=== PATIENT | female | born 1955 | race Caucasian/White ===

== ENCOUNTER 2017-09-21 08:01 | Day surgery (SDC) | payer BC ==
[~2017-09-21] VITALS: Ht 167.6 cm; Wt 93.9 kg
[~2017-09-21 08:01] MED LIST: ACETAMINOPHEN; ALBU90OI INH; ALEN70 PO; CALCAVITDA PO; CHOL10002 PO; CHOLECALCIFEROL PO; CHOLESTYRAMINE PO; CRUTCH2 USE; FLAX PO; HYDACE10B PO; HYDACE5325 PO; IBUP400 PO; IBUP800 PO; LEVSOD75 PO; MELO7.5 PO; MONT10T PO; MULTIVITAMIN PO; NAPR500 PO; Norco 10-325 T1 EACH PO; TAMS.4ER PO; Zofran Odt4 MG SL; [UNRECOGNIZED DRUG - REMARK] PO
[2017-09-21] MEDS ORDERED: LOSA25 (08:35)
[2017-09-21] MEDS ORDERED: PRAV20 (08:35)
[2017-09-21] MEDS ORDERED: RALO60 (08:36)
[2017-09-21] MEDS ORDERED: Omeprazole20 M1 (08:36)
== END 2017-09-21 11:13 | disposition home or self-care (01) ==
LOC: ORSCSDS 08:01
PROVIDERS: Internal Medicine Gastroenterology
PROC: 0DBL8ZX Excision of Transverse Colon, Via Natural or Artificial Opening Endoscopic, Diagnostic (ICD-10-PCS; principal; 2017-09-21 09:15)
PROC: 0DBN8ZX Excision of Sigmoid Colon, Via Natural or Artificial Opening Endoscopic, Diagnostic (ICD-10-PCS; principal; 2017-09-21 09:15)
PROC: 0D757ZZ Dilation of Esophagus, Via Natural or Artificial Opening (ICD-10-PCS; principal; 2017-09-21 09:15)
PROC: 0DB68ZX Excision of Stomach, Via Natural or Artificial Opening Endoscopic, Diagnostic (ICD-10-PCS; principal; 2017-09-21 09:15)
PROC: 0DBK8ZX Excision of Ascending Colon, Via Natural or Artificial Opening Endoscopic, Diagnostic (ICD-10-PCS; principal; 2017-09-21 09:15)
DX: R13.10 Dysphagia, unspecified (principal); K21.9 Gastro-esophageal reflux disease without esophagitis; K29.70 Gastritis, unspecified, without bleeding; K29.80 Duodenitis without bleeding; Z86.010 Personal history of colon polyps; D12.3 Benign neoplasm of transverse colon; D12.2 Benign neoplasm of ascending colon; K63.5 Polyp of colon; K64.8 Other hemorrhoids; E03.9 Hypothyroidism, unspecified; E78.00 Pure hypercholesterolemia, unspecified; E66.9 Obesity, unspecified; Z68.32 Body mass index [BMI] 32.0-32.9, adult; J45.909 Unspecified asthma, uncomplicated; Z79.899 Other long term (current) drug therapy
CPT/HCPCS: 88305; 88342; J7120

== ENCOUNTER → 2017-10-12 | Outpatient (CLI) | payer BC ==
[~2017-10-12] MED LIST changes: +LOSA25; +Omeprazole20 M1; +PRAV20; +RALO60
== END ==
LOC: PLD 10:17 → LAB SHORT 10:17
DX: D22.5 Melanocytic nevi of trunk (principal)
CPT/HCPCS: 88305

== ENCOUNTER 2020-08-05 11:44 | Emergency (ER) | payer MEDICARE, BC ==
[~2020-08-05] VITALS: Ht 170.2 cm; Wt 96.6 kg
[~2020-08-05 11:44] MED LIST changes: +ACET500; +AMLO5; +Calcium + Vita1 EACH PO; +MONT4; +PROAIR RESPICL90 MCG; +Roxicodone5 MG PO; +VITAMIN D34000 UNIT PO
== END 2020-08-05 13:22 | disposition home or self-care (01) ==
LOC: ER 11:44
DX: G44.309 Post-traumatic headache, unspecified, not intractable (principal); F07.81 Postconcussional syndrome; Z91.011 Allergy to milk products; Z88.5 Allergy status to narcotic agent; Z91.018 Allergy to other foods; Z79.899 Other long term (current) drug therapy; E03.9 Hypothyroidism, unspecified
CPT/HCPCS: 70450; 99284-25

== ENCOUNTER → 2021-11-24 | Outpatient (CLI) | payer MEDICARE, BC ==
[2021-11-24 19:19] LABS: Adenovirus F 40/41 Not Detected (NOT DETECT); Astrovirus Not Detected (NOT DETECT); Campylobacter Sp Not Detected (NOT DETECT); Cryptosporidium Not Detected (NOT DETECT); Cyclospora Cayetanensis Not Detected (NOT DETECT); E. Coli O157 Not Detected (NOT DETECT); Entamoeba Histolytica Not Detected (NOT DETECT); Enteroaggregative E. coli-EAEC Not Detected (NOT DETECT); Enteropathogenic E. coli-EPEC Not Detected (NOT DETECT); Enterotoxigenic E. coli-ETEC Not Detected (NOT DETECT); Giardia Lamblia Not Detected (NOT DETECT); Norovirus GI/GII Not Detected (NOT DETECT); Plesiomonas Shigelloides Not Detected (NOT DETECT); Rotavirus A Not Detected (NOT DETECT); Salmonella Sp Not Detected (NOT DETECT); Sapovirus Not Detected (NOT DETECT); Shiga Toxin-prod E. coli-STEC Not Detected (NOT DETECT); Shigella/Enteroin E. coli-EIEC Not Detected (NOT DETECT); Vibrio Cholerae Not Detected (NOT DETECT); Vibrio Sp Not Detected (NOT DETECT); Yersinia Enterocolitica Not Detected (NOT DETECT)
== END | disposition home or self-care (01) ==
LOC: LAB 12:00 → LAB SHORT 12:00
PROVIDERS: Physician Assistant Medical
DX: R19.7 Diarrhea, unspecified (principal)
CPT/HCPCS: 87507

== ENCOUNTER 2023-11-21 11:44 | Emergency (ER) | payer MEDICARE, BC ==
[~2023-11-21] VITALS: Ht 172.7 cm; Wt 90.3 kg
[2023-11-21 13:17] LABS: BASOPHILS ABSOLUTE AUTO 0.06 K/mm3 (0.00-0.23); BASOPHILS PERCENT AUTO 1 % (0-2); EOSINOPHILS ABSOLUTE AUTO 0.11 K/mm3 (0.00-0.68); EOSINOPHILS PERCENT AUTO 2 % (0-6); Hematocrit 44.3 % (33.0-51.0); Hemoglobin 15.3 g/dL (11.5-16.0); IMMATURE GRAN ABSOLUTE AUTO 0.02 K/mm3 (0.00-0.10); IMMATURE GRAN PERCENT AUTO 0 % (0-1); LYMPHOCYTES ABSOLUTE AUTO 2.11 K/mm3 (0.84-5.20); LYMPHOCYTES PERCENT AUTO 29 % (21-46); MONOCYTES ABSOLUTE AUTO 0.64 K/mm3 (0.16-1.47); MONOCYTES PERCENT AUTO 9 % (4-13); Mean Corpuscular HGB 30.1 pg (26.0-34.0); Mean Corpuscular HGB Conc 34.5 g/dL (31.5-36.5); Mean Corpuscular Volume 87 fL (80-100); Mean Platelet Volume 9.3 fL (9.1-12.4); NEUTROPHILS ABSOLUTE AUTO 4.37 K/mm3 (1.96-9.15); NEUTROPHILS PERCENT AUTO 60 % (41-73); Platelet Count 325 K/mm3 (150-400); RDW Coefficient Variation 14.3 % (11.7-14.2); RDW Standard Deviation 45.3 fL (35.1-46.3); Red Blood Cell Count 5.09 M/mm3 (3.80-5.20); White Blood Cell Count 7.31 K/mm3 (4.00-11.30)
[2023-11-21] MEDS ORDERED: LOSA50 PO (13:34)
[2023-11-21] MEDS ORDERED: Adipex-P37.5 M1 PO (13:35)
[2023-11-21] MEDS ORDERED: LEQVIO284 MG/1.5 PO (13:36)
[2023-11-21] MEDS ORDERED: COLE625 PO (13:37)
[2023-11-21 13:42] LABS: Albumin, Blood 3.7 g/dL (3.4-5.0); Albumin/Globulin Ratio 1.1 (0.8-1.8); Bilirubin, Total 0.6 mg/dL (0.1-1.0); Calcium, Blood 9.4 mg/dL (8.5-10.1); Creatinine, Blood 0.67 mg/dL (0.40-1.00); Globulin, Blood 3.5 g/dL (2.2-4.0); Total Protein, Blood 7.2 g/dL (6.4-8.2)
[2023-11-21 15:05] VITALS: BP 155/92
== END 2023-11-21 15:06 | disposition home or self-care (01) ==
LOC: ER 11:44
PROVIDERS: Family Medicine
DX: R41.82 Altered mental status, unspecified (principal); Z79.899 Other long term (current) drug therapy; Z91.011 Allergy to milk products; Z88.5 Allergy status to narcotic agent; Z91.018 Allergy to other foods; Z88.8 Allergy status to other drugs, medicaments and biological substances
CPT/HCPCS: 80053; 85025; 99284

== ENCOUNTER 2024-04-06 10:24 | Inpatient (IN) | payer MEDICARE, BC ==
[~2024-04-06] VITALS: Ht 172.7 cm; Wt 92.2 kg
[~2024-04-06 10:24] MED LIST changes: -ACET500; +ACET500 PO; -AMLO5; +Adipex-P37.5 M1 PO; +COLE625 PO; -Calcium + Vita1 EACH PO; +LOSA50 PO; -MELO7.5 PO; -MONT4; -Omeprazole20 M1; -PROAIR RESPICL90 MCG; -VITAMIN D34000 UNIT PO
[2024-04-06] MEDS ORDERED: NS 1,000 ML IV SCH ×4 (10:50→16:00)
[2024-04-06 11:12] LABS: BASOPHILS ABSOLUTE AUTO 0.08 K/mm3 (0.00-0.23); BASOPHILS PERCENT AUTO 1 % (0-2); EOSINOPHILS PERCENT AUTO 0 % (0-6); Hematocrit 39.5 % (33.0-51.0); IMMATURE GRAN PERCENT AUTO 1 % (0-1); LYMPHOCYTES ABSOLUTE AUTO 1.62 K/mm3 (0.84-5.20); LYMPHOCYTES PERCENT AUTO 13 % (21-46); MONOCYTES ABSOLUTE AUTO 1.39 K/mm3 (0.16-1.47); MONOCYTES PERCENT AUTO 11 % (4-13); Mean Corpuscular HGB 29.7 pg (26.0-34.0); Mean Corpuscular HGB Conc 35.4 g/dL (31.5-36.5); Mean Corpuscular Volume 84 fL (80-100); Mean Platelet Volume 10.6 fL (9.1-12.4); NEUTROPHILS ABSOLUTE AUTO 9.62 K/mm3 (1.96-9.15); NEUTROPHILS PERCENT AUTO 75 % (41-73); Platelet Count 330 K/mm3 (150-400); RDW Coefficient Variation 14.4 % (11.7-14.2); RDW Standard Deviation 44.2 fL (35.1-46.3); Red Blood Cell Count 4.72 M/mm3 (3.80-5.20); White Blood Cell Count 12.81 K/mm3 (4.00-11.30)
[2024-04-06] MEDS ORDERED: Ketorolac Tromethamine 30mg Vial IV ONE (11:25)
[2024-04-06] MEDS ORDERED: Ondansetron HCl 2 MG / ML 2ML Vial IV ONE (11:25)
[2024-04-06 11:32] LABS: Albumin, Blood 2.6 g/dL (3.4-5.0); Albumin/Globulin Ratio 0.6 (0.8-1.8); Bilirubin, Total 0.7 mg/dL (0.1-1.0); Bun/Creatinine Ratio 16.5 (12.0-20.0); Calcium, Blood 9.2 mg/dL (8.5-10.1); Creatinine, Blood 1.15 mg/dL (0.40-1.00); Globulin, Blood 4.4 g/dL (2.2-4.0); Magnesium, Blood 2.3 mg/dL (1.6-2.4); Potassium, Blood 3.1 mmol/L (3.5-5.5)
[2024-04-06 11:43] LABS: Influenza A, PCR NEGATIVE (NEGATIVE); Influenza B, PCR NEGATIVE (NEGATIVE); Resp Syncytial Virus, PCR NEGATIVE (NEGATIVE); SARS-Cov-2 (COVID-19) PCR, MMC NEGATIVE (NEGATIVE)
[2024-04-06] MEDS ORDERED: Potassium Chl 20MEQ/Water100ML 100 ML IV ONE (12:05)
[2024-04-06 12:50] LABS: Free Thyroxine 1.49 ng/dL (0.70-1.60); Thyroid Stimulating Hormone 1.52 uIU/mL (0.360-4.800)
[2024-04-06] MEDS ORDERED: CefTRIAXone Sodium 1,000 MG in NS 50 ML IV ONE (12:55)
[2024-04-06] MEDS ORDERED: Azithromycin 500 MG in NS 250 ML IV ONE (12:55)
[2024-04-06] MEDS ORDERED: MetroNIDAZOLE 500MG/NS 100 ml 100 ML IV ONE (13:15)
[2024-04-06] MEDS ORDERED: FLU VACC TS2024-25(6MOS UP)/PF 45 MCG/0.5 ML SYRINGE IM SCH (15:15)
[2024-04-06] MEDS ORDERED: Ondansetron 4 MG TAB PO PRN (15:15)
[2024-04-06] MEDS ORDERED: PNEUMOC 20-VAL CONJ-DIP CRM/PF 0.5 ML SYRINGE IM SCH (15:15)
[2024-04-06] MEDS ORDERED: Albuterol 2.5 MG/3 ML VIAL INH PRN (15:20)
[2024-04-06] MEDS ORDERED: Lactated Ringer's 1,000 ML IV SCH (16:00)
[2024-04-06] MEDS ORDERED: Clindamycin 900mg in D5W 50ML 50 ML IV SCH (16:00)
[2024-04-06 17:51] VITALS: BP 135/64
[2024-04-06] MEDS ORDERED: Ampicillin Sod/Sulbactam Sod 3 GM in NS 100 ML IV SCH (18:00)
[2024-04-06 19:57] VITALS: BP 110/49
[2024-04-06] MEDS ORDERED: AMLO5 PO (19:58)
[2024-04-06 20:00] VITALS: BP 128/60
--- NOTE | 2024-04-06 20:10 | NUR ---
DAY SHIFT SUMMARY: PATIENT ARRIVED TO FLOOR AT 1745. A&Ox4. PLEASANT AND COOPERATIVE WITH CARE. FULLY CLOTHED; DID NOT WANT TO WEAR GOWN. PROVIDED WITH DINNER TRAY AND WATER. MEDS WHOLE WITH FLUIDS. SBA c FWW TO BATHROOM. CONTINENT OF BOWEL AND BLADDER. NO C/O PAIN OR DISCOMFORT AT THIS TIME. FLUIDS AND MAG RUNNING @ TIME OF ADMIT. ABx PIGGY-BACKED AFTER MAG COMPLETED. BED IN LOWEST POSITION. CALL LIGHT WITHIN REACH. ALL NEEDS MET. REPORT TO ONCOMING NURSE.
[2024-04-06] MEDS ORDERED: Clindamycin HCl 150 MG Cap PO SCH (21:00)
[2024-04-06] MEDS ORDERED: Benzonatate 100 MG Cap PO PRN ×2 (21:15)
[2024-04-07 05:31] VITALS: BP 110/64
--- NOTE | 2024-04-07 05:49 | NUR ---
SHIFT SUMMARY PATIENT IS ALERT AND ORIENTED. PATIENT IS COOPERATIVE AND PLEASENT WITH CARE. PATIENT HAS HAD NO ACUTE EVENTS THIS SHIFT. VITAL SIGNS REVIEWED. IV FLUIDS INFUSED ORDERED. PATIENT HAS COMPLAINED OF PAIN, NAUSEA, SOB OR VOMITTING THIS SHIFT. BED IN LOCKED AND LOWEST POSITION. CALL LIGHT IN PLACE. WILL MONITOR UNTIL SHIFT CHANGE.
[2024-04-07] MEDS ORDERED: Pantoprazole Sodium 20 MG Tab PO SCH ×2 (06:00→16:30)
[2024-04-07] MEDS ORDERED: Levothyroxine Sodium 0.075 MG Tab PO SCH (06:00)
[2024-04-07 06:36] LABS: BASOPHILS ABSOLUTE AUTO 0.06 K/mm3 (0.00-0.23); BASOPHILS PERCENT AUTO 0 % (0-2); EOSINOPHILS PERCENT AUTO 0 % (0-6); Hematocrit 34.1 % (33.0-51.0); Hemoglobin 12.3 g/dL (11.5-16.0); IMMATURE GRAN ABSOLUTE AUTO 0.12 K/mm3 (0.00-0.10); IMMATURE GRAN PERCENT AUTO 1 % (0-1); LYMPHOCYTES ABSOLUTE AUTO 1.75 K/mm3 (0.84-5.20); LYMPHOCYTES PERCENT AUTO 13 % (21-46); MONOCYTES PERCENT AUTO 9 % (4-13); Mean Corpuscular HGB 30.3 pg (26.0-34.0); Mean Corpuscular HGB Conc 36.1 g/dL (31.5-36.5); Mean Corpuscular Volume 84 fL (80-100); Mean Platelet Volume 11.1 fL (9.1-12.4); NEUTROPHILS ABSOLUTE AUTO 10.66 K/mm3 (1.96-9.15); NEUTROPHILS PERCENT AUTO 77 % (41-73); Platelet Count 317 K/mm3 (150-400); RDW Coefficient Variation 14.9 % (11.7-14.2); RDW Standard Deviation 45.7 fL (35.1-46.3); Red Blood Cell Count 4.06 M/mm3 (3.80-5.20); White Blood Cell Count 13.89 K/mm3 (4.00-11.30)
[2024-04-07 07:14] VITALS: BP 158/61
[2024-04-07] MEDS ORDERED: CefTRIAXone Sodium 1,000 MG in NS 100 ML IV SCH (09:00)
[2024-04-07] MEDS ORDERED: Enoxaparin 40 MG/0.4 ML SYR SC SCH (09:00)
[2024-04-07 11:21] LABS: Bun/Creatinine Ratio 12.9 (12.0-20.0); Creatinine, Blood 0.85 mg/dL (0.40-1.00); Potassium, Blood 3.1 mmol/L (3.5-5.5)
[2024-04-07] MEDS ORDERED: Potassium Chloride 20 MEQ TabCR PO ONE (12:00)
[2024-04-07] MEDS ORDERED: Azithromycin 250 MG Tab PO SCH (15:00)
[2024-04-07 15:25] VITALS: BP 139/68
--- NOTE | 2024-04-07 17:44 | NUR ---
REPORT RECEIVED VERIFIED A/O X4 SOB WITH EXHERTION AND ALSO WHEN EATING. PT STATES SHE FEELS BETTER THEN SHE HAS BEEN. PT HAS BEEN COOPERATIVE WITH CARE AND IS ABLE TO MAKE NEEDS KNOWN. ASSISTED PT WITH SHOWER AND SHE DID VERY WELL. RESPIRATORY CARE INTO SEE PT, PT WAS LAY FLAT AND WHEN O2 WAS CHECKED IT WAS IN THE HIGH 80S. HEAD OF BED WAS ELEVATED AND PT PLACED ON CONT PULSE OX. PT STATES SHE FEELS WELL AND WOULD CALL IF NEEDING ASSISTENCE.
[2024-04-07 21:13] LABS: Adenovirus Not Detected (NOT DETECT); Bordetella pertussis Not Detected (NOT DETECT); Chlamydophila pneumoniae Not Detected (NOT DETECT); Coronavirus 229E Not Detected (NOT DETECT); Coronavirus HKU1 Not Detected (NOT DETECT); Coronavirus NL63 Not Detected (NOT DETECT); Coronavirus OC43 Not Detected (NOT DETECT); Human Metapneumovirus Not Detected (NOT DETECT); Human Rhinovirus/Enterovirus Not Detected (NOT DETECT); Influenza A/2009-H1 Not Detected (NOT DETECT); Influenza A/H1 Not Detected (NOT DETECT); Influenza A/H3 Not Detected (NOT DETECT); Influenza B Not Detected (NOT DETECT); Mycoplasma pneumoniae Not Detected (NOT DETECT); Parainfluenza Virus 1 Not Detected (NOT DETECT); Parainfluenza Virus 2 Not Detected (NOT DETECT); Parainfluenza Virus 3 Not Detected (NOT DETECT); Parainfluenza Virus 4 Not Detected (NOT DETECT); Respiratory Syncytial Virus Not Detected (NOT DETECT); SARS-Cov-2 (COVID-19), BioFire Not Detected (NOT DETECT)
[2024-04-07 21:37] VITALS: BP 135/69
[2024-04-08 03:49] VITALS: BP 136/70
--- NOTE | 2024-04-08 06:22 | NUR ---
CRACKER AND COOKIE MACHINE OPERATOR SUMMARY DR FRAZIER NOTIFIED OF BLOOD CULTURE POSITIVE X 1, GRAM VARIABLE RODS. SAYS CURRENT ABX COVERAGE IS ADEQUATE AND HE WILL DOUBLE CHECK HER CHART AND MAKE SURE. NO OTHER ACUTE EVENTS OVERNIGHT.
[2024-04-08 06:38] LABS: BASOPHILS ABSOLUTE AUTO 0.06 K/mm3 (0.00-0.23); BASOPHILS PERCENT AUTO 1 % (0-2); EOSINOPHILS ABSOLUTE AUTO 0.02 K/mm3 (0.00-0.68); EOSINOPHILS PERCENT AUTO 0 % (0-6); Hematocrit 32.1 % (33.0-51.0); Hemoglobin 11.2 g/dL (11.5-16.0); IMMATURE GRAN ABSOLUTE AUTO 0.11 K/mm3 (0.00-0.10); IMMATURE GRAN PERCENT AUTO 1 % (0-1); LYMPHOCYTES ABSOLUTE AUTO 1.74 K/mm3 (0.84-5.20); LYMPHOCYTES PERCENT AUTO 15 % (21-46); MONOCYTES ABSOLUTE AUTO 1.29 K/mm3 (0.16-1.47); MONOCYTES PERCENT AUTO 11 % (4-13); Mean Corpuscular HGB 29.7 pg (26.0-34.0); Mean Corpuscular HGB Conc 34.9 g/dL (31.5-36.5); Mean Corpuscular Volume 85 fL (80-100); NEUTROPHILS PERCENT AUTO 72 % (41-73); Platelet Count 352 K/mm3 (150-400); RDW Coefficient Variation 15.2 % (11.7-14.2); RDW Standard Deviation 47.8 fL (35.1-46.3); Red Blood Cell Count 3.77 M/mm3 (3.80-5.20); White Blood Cell Count 11.62 K/mm3 (4.00-11.30)
[2024-04-08 06:56] LABS: Bun/Creatinine Ratio 8.6 (12.0-20.0); Calcium, Blood 7.7 mg/dL (8.5-10.1); Creatinine, Blood 0.7 mg/dL (0.40-1.00); Potassium, Blood 2.9 mmol/L (3.5-5.5)
[2024-04-08 07:15] VITALS: BP 113/57
[2024-04-08] MEDS ORDERED: Potassium Chloride 10 Meq Tablet SA PO ONE (09:30)
[2024-04-08] MEDS ORDERED: Potassium Chl 20MEQ/Water100ML 100 ML IV SCH (09:35)
[2024-04-08] MEDS ORDERED: Lactobacil 2-S.Thermo-Bifido 1 1 Cap PO SCH (10:00)
[2024-04-08 15:23] VITALS: BP 138/64
[2024-04-08 19:35] VITALS: BP 124/59
[2024-04-09 02:03] VITALS: BP 134/75
[2024-04-09] MEDS ORDERED: Acetaminophen 325 MG TABLET PO PRN (04:50)
[2024-04-09 05:20] LABS: BASOPHILS ABSOLUTE AUTO 0.07 K/mm3 (0.00-0.23); BASOPHILS PERCENT AUTO 1 % (0-2); EOSINOPHILS ABSOLUTE AUTO 0.09 K/mm3 (0.00-0.68); EOSINOPHILS PERCENT AUTO 1 % (0-6); Hematocrit 33.3 % (33.0-51.0); Hemoglobin 11.7 g/dL (11.5-16.0); IMMATURE GRAN PERCENT AUTO 1 % (0-1); LYMPHOCYTES ABSOLUTE AUTO 1.87 K/mm3 (0.84-5.20); LYMPHOCYTES PERCENT AUTO 17 % (21-46); MONOCYTES ABSOLUTE AUTO 1.02 K/mm3 (0.16-1.47); MONOCYTES PERCENT AUTO 9 % (4-13); Mean Corpuscular HGB 29.8 pg (26.0-34.0); Mean Corpuscular HGB Conc 35.1 g/dL (31.5-36.5); Mean Corpuscular Volume 85 fL (80-100); Mean Platelet Volume 9.8 fL (9.1-12.4); NEUTROPHILS ABSOLUTE AUTO 7.66 K/mm3 (1.96-9.15); NEUTROPHILS PERCENT AUTO 71 % (41-73); Platelet Count 375 K/mm3 (150-400); RDW Coefficient Variation 15.1 % (11.7-14.2); RDW Standard Deviation 46.9 fL (35.1-46.3); Red Blood Cell Count 3.93 M/mm3 (3.80-5.20); White Blood Cell Count 10.81 K/mm3 (4.00-11.30)
[2024-04-09 05:47] LABS: Bun/Creatinine Ratio 6.8 (12.0-20.0); Calcium, Blood 8.1 mg/dL (8.5-10.1); Creatinine, Blood 0.59 mg/dL (0.40-1.00)
[2024-04-09 07:17] VITALS: BP 143/78
[2024-04-09] MEDS ORDERED: Potassium Chloride 10 Meq Tablet SA PO ONE (08:35)
[2024-04-09] MEDS ORDERED: Potassium Chl 20MEQ/Water100ML 100 ML IV SCH (08:40)
[2024-04-09] MEDS ORDERED: OMEP20ER PO (14:29)
[2024-04-09] MEDS ORDERED: MONT10T PO (14:29)
[2024-04-09 16:12] VITALS: BP 122/66
--- NOTE | 2024-04-09 18:28 | NUR ---
REPORT RECEIEVED VERIFIED. LAYING QUIETLY IN BED, SLIGHT HEADACHE THAT WAS COVERED WITH TYLENOL, PT HAS BEEN APPROPRIATE WITH CARE. POTASSIUM WAS LOW SO MULTIPLE K-RIDERS ORDERED IV AND PO WHICH PT ZEHRA WELL. PT HAS BEEN AMBULATORY AND INDEPENDANT IN ROOM SHOWING NO DISTRESS. CPAP SET UP BY RT FOR TONIGHTS USE.
[2024-04-09 19:16] VITALS: BP 138/77
[2024-04-10 05:20] VITALS: BP 143/85
[2024-04-10 06:01] LABS: Hematocrit 33.2 % (33.0-51.0); Hemoglobin 11.5 g/dL (11.5-16.0); Mean Corpuscular HGB 29.5 pg (26.0-34.0); Mean Corpuscular HGB Conc 34.6 g/dL (31.5-36.5); Mean Corpuscular Volume 85 fL (80-100); Mean Platelet Volume 9.6 fL (9.1-12.4); Platelet Count 448 K/mm3 (150-400); RDW Coefficient Variation 15.2 % (11.7-14.2); RDW Standard Deviation 47.3 fL (35.1-46.3); White Blood Cell Count 9.37 K/mm3 (4.00-11.30)
[2024-04-10 06:22] LABS: Albumin/Globulin Ratio 0.5 (0.8-1.8); Bilirubin, Total 0.6 mg/dL (0.1-1.0); Bun/Creatinine Ratio 6.3 (12.0-20.0); Calcium, Blood 8.1 mg/dL (8.5-10.1); Creatinine, Blood 0.63 mg/dL (0.40-1.00); Globulin, Blood 3.9 g/dL (2.2-4.0); Magnesium, Blood 1.4 mg/dL (1.6-2.4); Phosphorus, Blood 3.1 mg/dL (2.5-4.9); Potassium, Blood 2.9 mmol/L (3.5-5.5); Total Protein, Blood 5.9 g/dL (6.4-8.2)
[2024-04-10 07:29] VITALS: BP 146/82
--- NOTE | 2024-04-10 07:29 | NUR ---
MARKETING COMMUNICATION MANAGER SUMMARY PT STILL REQUIRING 2-3L O2 WHILE AWAKE. WHEN ASLEEP, REQUIRING A 6L BLEED WITH HER CPAP. NO ACUTE ISSUES OVERNIGHT.
[2024-04-10] MEDS ORDERED: Magnesium Sulf 2 GM/Water 50ML 50 ML IV STA (08:43)
[2024-04-10] MEDS ORDERED: Potassium Chl 20MEQ/Water100ML 100 ML IV SCH (08:45)
[2024-04-10] MEDS ORDERED: Potassium Chloride 10 Meq Tablet SA PO ONE (09:00)
[2024-04-10] MEDS ORDERED: Calcium Carbonate 500 MG Tab Chew PO PRN (09:05)
[2024-04-10] MEDS ORDERED: NS 250 ML IV PRN (10:05)
[2024-04-10 15:35] VITALS: BP 157/86
--- NOTE | 2024-04-10 17:10 | NUR ---
PT ALERT AND ORIENTED X4, INDEPENDENT AT BASELINE. INDEPENDENT WITH FWW IN THE ROOM DUE TO WEAKNESS. PT HAS NONE PRODUCTIVE COUGH. SAT 92% ON 4L NC, USE OF CPAP AT NIGHT WITH 6L BLEED IN. PT R/A WITH WITH CPAP OVERNIGHT NO BLEED IN AT BASELINE. PT DENIES CHEST PAIN OR PRESSURE, DESCRIBED "JUST NOT FEELING WELL". REPLACED K+ AND MAG. PT DEVELOPED NAUSEA. TREATED PER EMAR.
[2024-04-10 19:40] VITALS: BP 135/74
[2024-04-11 03:59] VITALS: BP 125/78
[2024-04-11 06:24] LABS: Bun/Creatinine Ratio 9.1 (12.0-20.0); Calcium, Blood 8.6 mg/dL (8.5-10.1); Creatinine, Blood 0.66 mg/dL (0.40-1.00); Magnesium, Blood 1.8 mg/dL (1.6-2.4); Potassium, Blood 3.6 mmol/L (3.5-5.5)
--- NOTE | 2024-04-11 07:32 | NUR ---
PAINT MIXER MACHINE SUMMARY PT SAYS SHE IS FEELING BETTER THIS MORNING. WILL TRY AGAIN TO WEAN HER OFF OXYGEN THIS MORNING. PREVIOUS ATTEMPTS AT WEANING 02 HAVENT BEEN EFFECTIVE.
[2024-04-11 08:01] VITALS: BP 128/61
--- NOTE | 2024-04-11 09:59 | NUR ---
WHILE PATIENT ASLEEP OXYGEN SATURATION DECREASE TO 87% EVEN WHILE ON OXYGEN AT 2L N/C. CPAP PLACED ON PATIENT WITH A 5L BLEED IN OF OXYGEN PATIENT OXGEN SATURATION BACK UP TO 97%. PATIENT ENCOURAGED TO SLEEP IN A 45 DEGREE ANGLE AND ENCOURAGED TO SIT UP FOR MEALS TO INCREASE EXPANSION.
[2024-04-11 15:49] VITALS: BP 136/80
--- NOTE | 2024-04-11 18:25 | NUR ---
PATIENT A/O X4. PATIENT HAD HOME 02 EVAL WITH NO HOME OXYGEN INDICATED. DR OLIVEIRA HAS ORDERED AN OVERNIGHT PULSE OXIMETRY STUDY FOR THIS EVENING. PATIENT HAS BEEN WALKING IN HALLS WITH NO ASSISTANCE USING A FWW. IV ON LEFT HAND WAS DC DUE TO PAIN IN AREA HOWEVER PATIENT HAS IV ON RIGHT. PATIENT RESTING COMFORTABLY IN THE BED. PATIENT WAS GIVEN EDUCATION ON USING INCENTIVE SPIROMETRY HOURLY WHILE AWAKE.
[2024-04-11 19:09] VITALS: BP 153/85
[2024-04-12 05:24] VITALS: BP 153/88
--- NOTE | 2024-04-12 06:02 | NUR ---
SHIFT SUMMARY: Pt is admitted for sepsis and is a full code. Is alert and able to make needs known. ADLs have been SBA due to sleep study. Was given PRN APAP for pain management.
[2024-04-12 06:28] LABS: BASOPHILS ABSOLUTE AUTO 0.09 K/mm3 (0.00-0.23); BASOPHILS PERCENT AUTO 1 % (0-2); EOSINOPHILS ABSOLUTE AUTO 0.13 K/mm3 (0.00-0.68); EOSINOPHILS PERCENT AUTO 2 % (0-6); Hematocrit 36.1 % (33.0-51.0); Hemoglobin 12.4 g/dL (11.5-16.0); IMMATURE GRAN ABSOLUTE AUTO 0.04 K/mm3 (0.00-0.10); IMMATURE GRAN PERCENT AUTO 1 % (0-1); LYMPHOCYTES PERCENT AUTO 25 % (21-46); MONOCYTES ABSOLUTE AUTO 0.81 K/mm3 (0.16-1.47); MONOCYTES PERCENT AUTO 10 % (4-13); Mean Corpuscular HGB 30.2 pg (26.0-34.0); Mean Corpuscular HGB Conc 34.3 g/dL (31.5-36.5); Mean Corpuscular Volume 88 fL (80-100); NEUTROPHILS ABSOLUTE AUTO 5.32 K/mm3 (1.96-9.15); NEUTROPHILS PERCENT AUTO 63 % (41-73); Platelet Count 538 K/mm3 (150-400); RDW Coefficient Variation 15.4 % (11.7-14.2); RDW Standard Deviation 49.6 fL (35.1-46.3); Red Blood Cell Count 4.11 M/mm3 (3.80-5.20); White Blood Cell Count 8.49 K/mm3 (4.00-11.30)
[2024-04-12 06:45] LABS: Albumin, Blood 2.4 g/dL (3.4-5.0); Anion Gap 10 mmol/L (3-11); Blood Urea Nitrogen 9 mg/dL (8-24); Bun/Creatinine Ratio 12.6 (12.0-20.0); CO2, Blood 27 mmol/L (21-32); Calcium, Blood 8.8 mg/dL (8.5-10.1); Chloride, Blood 106 mmol/L (98-108); Creatinine, Blood 0.71 mg/dL (0.40-1.00); Glomerular Filtration Rate 91 (60-); Glucose, Blood 109 mg/dL (70-99); Magnesium, Blood 1.9 mg/dL (1.6-2.4); Phosphorus, Blood 3.1 mg/dL (2.5-4.9); Potassium, Blood 3.6 mmol/L (3.5-5.5); Sodium, Blood 139 mmol/L (136-145)
[2024-04-12 07:10] VITALS: BP 155/85
[2024-04-12] MEDS ORDERED: VITAMIN D325 MC3 PO (11:38)
[2024-04-12] MEDS ORDERED: PROAIR RESPICL90 MCG INH (11:38)
[2024-04-12] MEDS ORDERED: MOBIC15 MG PO (11:38)
[2024-04-12] MEDS ORDERED: CALCIUM 600 MG1 EA17 PO (11:39)
[2024-04-12] MEDS ORDERED: LEQVIO284 MG/1.5 SC (11:40)
[2024-04-12] MEDS ORDERED: PROLIA60 MG/1 ML SC (11:41)
[2024-04-12] MEDS ORDERED: B-121000 MC3 PO (11:42)
[2024-04-12] MEDS ORDERED: OSTEO BIFLEX TRIPLE PO (11:42)
[2024-04-12] MEDS ORDERED: LOSA50 PO (12:15)
[2024-04-12] MEDS ORDERED: AMOCLA875 PO (12:16)
[2024-04-12] MEDS ORDERED: VISBIOME 112.51 EACH PO (12:17)
--- NOTE | 2024-04-12 13:13 | NUR ---
REVIEWED DISHCARGE INSTURTION WITH PATIENT. PATIENT TO DISCHARGE HOME WITH SPOUSE DRIVING AND HAS FOLLOW UP APPT WITH PRIMARY CARE PROVIDER ON 04/13/2024 FOR FOLLOW UP. NO FUTHER QUESTION FROM PATIENT WHO VERBALIZED UNDERSTANDING WITH DISCHARGE INSTRUCTIONS.
[2024-04-13 06:15] LABS: ALDOSTERONE <3.0 ng/dL; ALDOSTERONE/RENINACTIVITY CALC <7.5 ratio (<=25.0); RENIN ACTIVITY 0.4 ng/mL/hr
== END 2024-04-12 13:49 | disposition home or self-care (01) | DRG 871 ==
LOC: ER 10:24 → MEDS 10:25 → ENPENDDIS 04-12 10:37 → MEDS 04-12 13:49
PROVIDERS: Family Medicine; Physician Assistant; Student in an Organized Health Care Education/Training Program; ADMIT Internal Medicine
PROC: 3E03329 Introduction of Other Anti-infective into Peripheral Vein, Percutaneous Approach (ICD-10-PCS; principal; 2024-04-07)
PROC: 5A09357 Assistance with Respiratory Ventilation, Less than 24 Consecutive Hours, Continuous Positive Airway Pressure (ICD-10-PCS; 2024-04-07)
DX: A41.9 Sepsis, unspecified organism (principal); J18.9 Pneumonia, unspecified organism; J85.0 Gangrene and necrosis of lung; N17.9 Acute kidney failure, unspecified; E87.1 Hypo-osmolality and hyponatremia; R65.20 Severe sepsis without septic shock; K21.9 Gastro-esophageal reflux disease without esophagitis; E78.5 Hyperlipidemia, unspecified; E87.6 Hypokalemia; E03.9 Hypothyroidism, unspecified; G47.33 Obstructive sleep apnea (adult) (pediatric); I10 Essential (primary) hypertension; Z88.8 Allergy status to other drugs, medicaments and biological substances; Z91.011 Allergy to milk products; Z88.5 Allergy status to narcotic agent; Z91.018 Allergy to other foods; Z87.442 Personal history of urinary calculi; M19.90 Unspecified osteoarthritis, unspecified site; Z90.89 Acquired absence of other organs; Z98.51 Tubal ligation status; Z90.710 Acquired absence of both cervix and uterus; Z98.890 Other specified postprocedural states
CPT/HCPCS: 0202U; 0241U; 36415; 71046; 74177; 80048; 80053; 80069; 82088; 82570; 83605; 83690; 83735; 84100; 84133; 84145; 84244; 84439; 84443; 85025; 85027; 87040; 93005; 93010; 94640; 94660; 94664; 94760; 94761; 94762; 96365; 96366; 96367; 96368; 96372; 96375; 96376; 99285-25; A9270; G0378; J0295; J0456; J0696; J1650; J1885; J2405; J2470; J3475; J3480; J7030; J7050; Q9967

== ENCOUNTER 2024-10-10 03:52 | Day surgery (SDC) | payer MEDICARE, BC ==
[~2024-10-10 03:52] MED LIST changes: +AMLO5 PO; +AMOCLA875 PO; +B-121000 MC3 PO; +CALCIUM 600 MG1 EA17 PO; +LEQVIO284 MG/1.5 SC; +MOBIC15 MG PO; +OMEP20ER PO; +OSTEO BIFLEX TRIPLE PO; +PROAIR RESPICL90 MCG INH; +PROLIA60 MG/1 ML SC; +VISBIOME 112.51 EACH PO; +VITAMIN D325 MC3 PO
[2024-10-10] MEDS ORDERED: INCLISIRAN SODIUM 284 MG/1.5 ML SYRINGE SC SCH (06:00)
[2024-10-10 11:02] VITALS: BP 141/75
[2024-10-10] MEDS ORDERED: VITAMIN B121000 MCG PO (11:06)
[2024-10-10] MEDS ORDERED: CALCIUM 600 +1 EA11 PO (11:06)
[2024-10-10] MEDS ORDERED: THERA-D2000 UNIT PO (11:07)
[2024-10-10] MEDS ORDERED: MELO7.5 PO (11:11)
[2024-10-10] MEDS ORDERED: ALBU90OI (11:13)
[2024-10-10] MEDS ORDERED: prolea INJ (11:13)
[2024-10-10] MEDS ORDERED: SPIR25 PO (11:14)
== END 2024-10-10 11:23 | disposition home or self-care (01) ==
LOC: ATC 03:52
DX: E78.01 Familial hypercholesterolemia (principal); E03.9 Hypothyroidism, unspecified
CPT/HCPCS: 96372; J1306

== ENCOUNTER → 2024-12-20 | Outpatient (CLI) | payer MEDICARE, BC ==
[~2024-12-20] MED LIST changes: +ALBU90OI; +CALCIUM 600 +1 EA11 PO; +MELO7.5 PO; +SPIR25 PO; +THERA-D2000 UNIT PO; +VITAMIN B121000 MCG PO; +prolea INJ
== END | disposition home or self-care (01) ==
LOC: LAB SHORT 08:02 → LAB 08:02
DX: L60.2 Onychogryphosis (principal); B35.1 Tinea unguium
CPT/HCPCS: 88305; 88312

== ENCOUNTER 2025-01-09 04:18 | Day surgery (SDC) | payer MEDICARE, BC ==
[2025-01-09] MEDS ORDERED: INCLISIRAN SODIUM 284 MG/1.5 ML SYRINGE SC SCH (06:00)
[2025-01-09 11:15] VITALS: BP 162/78
[2025-01-09] MEDS ORDERED: LEQVIO284 MG/1.5 SC ×2 (11:26→11:27)
== END 2025-01-09 11:20 | disposition home or self-care (01) ==
LOC: ATC 04:18
DX: E78.01 Familial hypercholesterolemia (principal); E03.9 Hypothyroidism, unspecified; J45.20 Mild intermittent asthma, uncomplicated; Z79.890 Hormone replacement therapy; Z79.899 Other long term (current) drug therapy; Z88.5 Allergy status to narcotic agent; Z91.041 Radiographic dye allergy status; Z91.011 Allergy to milk products; Z91.018 Allergy to other foods; Z88.8 Allergy status to other drugs, medicaments and biological substances; K21.9 Gastro-esophageal reflux disease without esophagitis
CPT/HCPCS: 96372; J1306

== ENCOUNTER 2025-01-11 10:12 | Day surgery (SDC) | payer MEDICARE, BC ==
[~2025-01-11] VITALS: Ht 170.2 cm; Wt 99.5 kg
[2025-01-11] MEDS ORDERED: Ondansetron HCl 2 MG / ML 2ML Vial ONE (11:37)
[2025-01-11 13:43] VITALS: BP 128/73
== END 2025-01-11 13:00 | disposition home or self-care (01) ==
LOC: ORSCSDS 10:12
PROVIDERS: Internal Medicine Gastroenterology
PROC: 0DBL8ZX Excision of Transverse Colon, Via Natural or Artificial Opening Endoscopic, Diagnostic (ICD-10-PCS; principal; 2025-01-11 12:30)
PROC: 0DBM8ZX Excision of Descending Colon, Via Natural or Artificial Opening Endoscopic, Diagnostic (ICD-10-PCS; principal; 2025-01-11 12:30)
DX: Z12.11 Encounter for screening for malignant neoplasm of colon (principal); Z86.0101 Personal history of adenomatous and serrated colon polyps; D12.4 Benign neoplasm of descending colon; K63.5 Polyp of colon; D12.3 Benign neoplasm of transverse colon; E78.5 Hyperlipidemia, unspecified; G47.33 Obstructive sleep apnea (adult) (pediatric); I10 Essential (primary) hypertension; K21.9 Gastro-esophageal reflux disease without esophagitis; E66.9 Obesity, unspecified; Z68.34 Body mass index [BMI] 34.0-34.9, adult; Z79.899 Other long term (current) drug therapy
CPT/HCPCS: 88305; J2003; J2405; J2704; J7120

== ENCOUNTER 2025-05-02 19:57 | Emergency (ER) | payer MEDICARE, BC ==
[~2025-05-02] VITALS: Ht 172.7 cm; Wt 97.5 kg
[2025-05-02 20:33] LABS: BASOPHILS ABSOLUTE AUTO 0.11 K/mm3 (0.00-0.23); BASOPHILS PERCENT AUTO 2 % (0-2); EOSINOPHILS ABSOLUTE AUTO 0.17 K/mm3 (0.00-0.68); EOSINOPHILS PERCENT AUTO 2 % (0-6); Hematocrit 42.2 % (33.0-51.0); Hemoglobin 14.5 g/dL (11.5-16.0); IMMATURE GRAN ABSOLUTE AUTO 0.01 K/mm3 (0.00-0.10); IMMATURE GRAN PERCENT AUTO 0 % (0-1); LYMPHOCYTES ABSOLUTE AUTO 2.27 K/mm3 (0.84-5.20); LYMPHOCYTES PERCENT AUTO 32 % (21-46); MONOCYTES ABSOLUTE AUTO 0.71 K/mm3 (0.16-1.47); MONOCYTES PERCENT AUTO 10 % (4-13); Mean Corpuscular HGB Conc 34.4 g/dL (31.5-36.5); Mean Corpuscular Volume 87 fL (80-100); NEUTROPHILS ABSOLUTE AUTO 3.86 K/mm3 (1.96-9.15); NEUTROPHILS PERCENT AUTO 54 % (41-73); NRBC ABSOLUTE 0.00 K/mm3 (0.00-0.02); NRBC Auto 0.0 /100 WBC (0.0-0.2); Platelet Count 341 K/mm3 (150-400); RDW Coefficient Variation 14.4 % (11.7-14.2); RDW Standard Deviation 45.9 fL (35.1-46.3)
[2025-05-02 20:38] LABS: Alanine Aminotransfer (ALT/SGP 116.0 U/L (12-78); Albumin, Blood 3.8 g/dL (3.4-5.0); Albumin/Globulin Ratio 1.1 (0.8-1.8); Anion Gap 9.0 mmol/L (3-11); Aspartate Aminotrans (AST/SGOT 240.0 U/L (12-37); Bilirubin, Total 0.6 mg/dL (0.1-1.0); Blood Urea Nitrogen 24.0 mg/dL (8-24); CO2, Blood 23.0 mmol/L (21-32); Calcium, Blood 9.3 mg/dL (8.5-10.1); Chloride, Blood 106.0 mmol/L (98-108); Creatinine, Blood 0.84 mg/dL (0.40-1.00); Globulin, Blood 3.4 g/dL (2.2-4.0); Glucose, Blood 140.0 mg/dL (70-99); Potassium, Blood 3.9 mmol/L (3.5-5.5); Sodium, Blood 134.0 mmol/L (136-145); Total Protein, Blood 7.2 g/dL (6.4-8.2)
[2025-05-02 22:04] VITALS: BP 128/54
== END 2025-05-02 22:42 | disposition home or self-care (01) ==
LOC: ER 19:57
PROVIDERS: Emergency Medicine
DX: R07.89 Other chest pain (principal); I10 Essential (primary) hypertension; G47.33 Obstructive sleep apnea (adult) (pediatric); M19.90 Unspecified osteoarthritis, unspecified site; Z91.0110 Allergy to milk products, unspecified; Z88.5 Allergy status to narcotic agent; Z79.899 Other long term (current) drug therapy; Z87.442 Personal history of urinary calculi
CPT/HCPCS: 71045; 80053; 83690; 83880; 84484; 85025; 93005; 93010; 99285-25